=== PATIENT | female | born 1950 | race Caucasian/White ===

== ENCOUNTER → 2017-10-16 | Outpatient (CLI) | payer MEDICARE, OTHER ==
[~2017-10-16] MED LIST: BUSP15TA69 PO; CAPS60CR TP; CEFU250T11 PO; CITA-128 PO; CYC10 PO; CYCL10TA29 PO; DAR100 PO; DICY10CA62 PO; HYDR-2966 PO; HYDR-3083 PO; HYDR-3250 FT; HYDR-4309 PO; HYO375 PO; HYOS0.3732 PO; KET10 PO; LOR5/325 PO; MELA5TAB20 PO; METH-271 PO; ONDA4TAB PO; OSE75 PO; PER PO; PRAV20TA65 PO; PRE20 PO; PRED20TA6 PO; TRAZ-156 PO; VAL500 PO
== END ==
LOC: RESP 12:47
PROVIDERS: ATTEND Physician Assistant
DX: J44.9 Chronic obstructive pulmonary disease, unspecified (principal); J98.4 Other disorders of lung
CPT/HCPCS: 94060; 94729

== ENCOUNTER 2017-12-12 18:41 | Emergency (ER) | payer MEDICARE, OTHER ==
[~2017-12-12] VITALS: Ht 167.6 cm; Wt 86.2 kg
--- NOTE | 2017-12-12 18:44 | ER Report ---
History and Physical Time Seen By MD: 18:44 HPI/ROS CHIEF COMPLAINT: Left shoulder pain HISTORY OF PRESENT ILLNESS: 67-year-old female with a history of osteoarthritis and numerous joints complains of left shoulder pain for 2 weeks. She recalls no specific injury. She notes no exacerbating movements. Patient describes 6/ 10 pain is keeping her from sleeping. Patient notes no fever or chills. He notes no joint swelling. Allergies: Coded Allergies: amoxicillin (Verified Allergy, Mild, ITCHES, 12/12/17) codeine (Verified Allergy, Mild, HALLUCINATE, 12/12/17) Uncoded Allergies: tape (Allergy, Intermediate, rash, 04/12/09) Home Meds Active Scripts Oxycodone Hcl/Acetaminophen (PERCOCET 5-325 MG TABLET) 1 Each Tablet, 1 EACH PO Q4-6H Y for PAIN, #12 Prov:ANNAGLORY Guzmán DO 12/12/17 Prednisone 10 Mg Tab (PREDNISONE 10 MG TAB) 10 Mg Tablet, 10 MG PO QDAY Y for reduce arthritis inflammation, #9 2 tabs daily for 3 days 1 tab daily for 3 days Prov:MARTÍNEZ CASTILLOKatelyn Guzmán DO 12/12/17 Reported Medications Diclofenac Sodium (DICLOFENAC SODIUM) 75 Mg Tablet.dr, 75 MG PO TID Y for ANXIETY, TAB 12/12/17 Dicyclomine Hcl (DICYCLOMINE HCL) 20 Mg Tablet, 20 MG PO QID 12/12/17 Cyclobenzaprine Hcl (CYCLOBENZAPRINE HCL) 10 Mg Tablet, 10 MG PO TID Y for PAIN , #9 TAB 12/12/17 Melatonin/Pyridoxine Hcl (B6) (MELATONIN 10 MG TABLET) 1 Each Tab.mphase, 1 EACH PO QHS 12/12/17 Buspirone Hcl (BUSPIRONE HCL) 15 Mg Tablet, 15 MG PO TID, #10 TAB 07/21/17 Trazodone Hcl (TRAZODONE HCL) 50 Mg Tablet, 100 MG PO QHS 11/05/15 Pravastatin Sodium (Pravachol) 20 Mg Tablet, 40 MG PO QPM, 0 Refills 09/09/09 Citalopram Hydrobromide (Citalopram Hbr) 20 Mg Tablet, 40 MG PO QDAY 04/12/09 Hydrochlorothiazide (Hydrochlorothiazide) 25 Mg Tablet, 12.5 MG PO DAILY 04/12/09 Discontinued Reported Medications Melatonin (MELATONIN) 5 Mg Tab.rapdis, 5 MG PO QHS 01/06/17 Discontinued Scripts Prednisone (PREDNISONE) 20 Mg Tablet, 20 MG PO QDAY for reduce lung inflammation for 7 Days, #9 2 By mouth daily 3 days, then 1 by mouth daily 3 days Prov:GLORY CASTILLO DO 07/21/17 Cefuroxime Axetil (CEFUROXIME) 250 Mg Tablet, 250 MG PO BID for infection, #14 TAB Prov:GLORY CASTILLO DO 07/21/17 Reviewed Nurses Notes: Yes Old Medical Records Reviewed: Yes Hx Smoking: Yes (less than 1ppd/quitting) Smoking Status: Current: Every Day Smoker Exposure to Second Hand Smoke?: Yes Hx Substance Use Disorder: No Hx Alcohol Use: No Constitutional Vital Sign - Last 24 Hours 12/12/17 18:49 Temp 98.2 Pulse 97 Resp 20 B/P (MAP) 159/82 Pulse Ox 92 O2 Delivery Room Air Physical Exam General appearance: Alert no distress. Afebrile Respiratory: Chest is non tender, lungs are clear to auscultation. Cardiac: Regular rate and rhythm Extremities: Examination of the left shoulder reveals no joint effusion, no erythema, no warmth. There is pain with passive range of motion and active range of motion of the joint. There is decreased range of motion. Elbow, wrist and hand are unremarkable. The left hand is neurovascularly intact. DIFFERENTIAL DIAGNOSIS: After history and physical exam differential diagnosis was considered for sprain, strain, fracture, dislocation, contusion, rotator cuff tear, arthritis Medical Decision Making EKG/Imaging Imaging X-ray: Two-view left shoulder was obtained. I viewed the images myself on the PACS system. My interpretation of the images is: No fracture no dislocation or malalignment. The radiologist interpretation had no clinically significant variation from this interpretation. ED Course/Re-evaluation ED Course Patient was admitted to an examination room. H&P was done. The differential diagnoses was considered. On clinical examination there is no joint effusion or pain in her shoulder with movement. There's been no injury. Patient has diagnostic x-rays which were unremarkable. Patient be treated with prednisone since she is unable to take NSAIDs due to her other medications. Patient be given a limited supply of Percocet for 10 for pain relief. She is advised apply heating pad to her shoulder. Patient advised to follow-up with primary care if unimproved in 3-5 days. Decision to Disposition Date: Dec 12, 2017 Decision to Disposition Time: 19:18 Depart Departure Latest Vital Signs Vital Signs Date Time Temp Pulse Resp B/P (MAP) Pulse Ox O2 Delivery O2 Flow Rate FiO2 12/12/17 18:49 98.2 97 20 159/82 92 Room Air Impression: Primary Impression: Osteoarthritis of left shoulder Additional Impression: Shoulder pain Condition: Improved Disposition: HOME OR SELF-CARE Referrals: ROMY HESS PA-C (PCP) New Scripts Oxycodone Hcl/Acetaminophen (PERCOCET 5-325 MG TABLET) 1 Each Tablet 1 EACH PO Q4-6H Y for PAIN, #12 Prov: GLORY CASTILLO DO 12/12/17 Prednisone 10 Mg Tab (PREDNISONE 10 MG TAB) 10 Mg Tablet 10 MG PO QDAY Y for reduce arthritis inflammation, #9 2 tabs daily for 3 days 1 tab daily for 3 days Prov: GLORY CASTILLO DO 12/12/17 Patient Instructions: Arthritis (ED) Additional Instructions: Apply heating pad 30-60 minutes 2-3 times per day to your left shoulder Follow-up with your primary care if unimproved in 3-5 days Problem Qualifiers Primary Impression: Osteoarthritis of left shoulder Osteoarthritis type: primary Qualified Codes: M19.012 - Primary osteoarthritis, left shoulder Additional Impression: Shoulder pain Chronicity: acute Laterality: left Qualified Codes: M25.512 - Pain in left shoulder GLORY CASTILLO DO Dec 12, 2017 18:44
[2017-12-12 18:49] VITALS: BP 159/82
[2017-12-12] MEDS ORDERED: predniSONE 20 MG TAB PO ONE (18:55)
[2017-12-12] MEDS ORDERED: CYCL10TA29 PO (18:57)
[2017-12-12] MEDS ORDERED: DICY20TA70 PO (18:57)
[2017-12-12] MEDS ORDERED: MELA1TAB2 PO (18:57)
[2017-12-12] MEDS ORDERED: DICL-195 PO (18:58)
[2017-12-12] MEDS ORDERED: OXYC-865 PO (19:20)
[2017-12-12] MEDS ORDERED: PRED-1 PO (19:20)
--- NOTE | 2017-12-12 19:27 | RADIOLOGY IMAGING REPORT ---
FACILITY: [facility] PATIENT NAME: Darvin Jimenez : 1950 MR: [id number] V: [id number] EXAM DATE: ORDERING PHYSICIAN: GLORY CASTILLO TECHNOLOGIST: Location: [facility] - [place] Patient: Darvin Jimenez : 1950 Visit/Account:[id number] Date of Sevice: 12/12/2017 EXAMINATION: Left shoulder radiographs 2 views HISTORY: Shoulder pain for 2 weeks. COMPARISON: None. FINDINGS: 2 views of the left shoulder are obtained. Bones: Negative. Joint spaces: Negative. Hardware: None. Alignment: Normal. Soft tissues/visualized lungs: Negative. IMPRESSION: No acute osseous abnormality of the left shoulder. Report Dictated By: Zeke Kumari MD at 12/12/2017 7:21 PM Report E-Signed By: Zeke Kumari MD at 12/12/2017 7:22 PM WSN:[id number]
== END 2017-12-12 19:25 | disposition home or self-care (01) ==
LOC: ER 18:53
DX: M19.012 Primary osteoarthritis, left shoulder (principal)
CPT/HCPCS: 73030; 99283; A9270; J7512

== ENCOUNTER 2018-01-31 22:21 | Emergency (ER) | payer MEDICARE, OTHER ==
[~2018-01-31 22:21] MED LIST changes: +DICL-195 PO; +DICY20TA70 PO; +MELA1TAB2 PO; +OXYC-865 PO; +PRED-1 PO
--- NOTE | 2018-01-31 22:35 | ER Report ---
History and Physical Time Seen By MD: 22:34 Hx. of Stated Complaint: PT REPORTS THAT HER UPPER ARMS HAVE BEEN SWOLLEN FOR THREE DAYS. STATES THAT THEY ARE PAINFUL AND SHE CAN'T SLEEP ON HER BACK. HPI/ROS CHIEF COMPLAINT: arms swollen and painful HISTORY OF PRESENT ILLNESS: This is a 67 year old female. She has had pain for the last couple of months, not worse than usual. She noted that they were a little more swollen and some bruising the last 3 days. No chest pain or shortness of breath with this. She has no cough, runny nose or sore throat. No abdominal pain. No nausea or vomiting. No changes in bowel or bladder. Eating normally, does not drink much fluid. Maybe about 12-16 ounces of diet coke daily. Allergies: Coded Allergies: amoxicillin (Verified Allergy, Mild, ITCHES, 01/31/18) codeine (Verified Allergy, Mild, HALLUCINATE, 01/31/18) Uncoded Allergies: tape (Allergy, Intermediate, rash, 04/12/09) Home Meds Reported Medications Diclofenac Sodium (DICLOFENAC SODIUM) 75 Mg Tablet.dr, 75 MG PO TID Y for ANXIETY, TAB 12/12/17 Dicyclomine Hcl (DICYCLOMINE HCL) 20 Mg Tablet, 20 MG PO QID 12/12/17 Cyclobenzaprine Hcl (CYCLOBENZAPRINE HCL) 10 Mg Tablet, 10 MG PO TID Y for PAIN , #9 TAB 12/12/17 Melatonin/Pyridoxine Hcl (B6) (MELATONIN 10 MG TABLET) 1 Each Tab.mphase, 1 EACH PO QHS 12/12/17 Buspirone Hcl (BUSPIRONE HCL) 15 Mg Tablet, 15 MG PO TID, #10 TAB 07/21/17 Trazodone Hcl (TRAZODONE HCL) 50 Mg Tablet, 100 MG PO QHS 11/05/15 Pravastatin Sodium (Pravachol) 20 Mg Tablet, 40 MG PO QPM, 0 Refills 09/09/09 Citalopram Hydrobromide (Citalopram Hbr) 20 Mg Tablet, 40 MG PO QDAY 04/12/09 Hydrochlorothiazide (Hydrochlorothiazide) 25 Mg Tablet, 12.5 MG PO DAILY 04/12/09 Discontinued Scripts Oxycodone Hcl/Acetaminophen (PERCOCET 5-325 MG TABLET) 1 Each Tablet, 1 EACH PO Q4-6H Y for PAIN, #12 Prov:GLORY CASTILLO DO 12/12/17 Prednisone 10 Mg Tab (PREDNISONE 10 MG TAB) 10 Mg Tablet, 10 MG PO QDAY Y for reduce arthritis inflammation, #9 2 tabs daily for 3 days 1 tab daily for 3 days Prov:GLORY CASTILLO DO 12/12/17 Reviewed Nurses Notes: Yes Hx Smoking: Yes (less than 1ppd/quitting) Smoking Status: Current: Every Day Smoker Exposure to Second Hand Smoke?: Yes Hx Substance Use Disorder: No Hx Alcohol Use: No Constitutional Vital Sign - Last 24 Hours 01/31/18 02/01/18 22:29 01:22 Temp 97.8 Pulse 109 85 Resp 14 16 B/P (MAP) 176/106 138/88 (105) Pulse Ox 92 95 O2 Delivery Room Air Room Air Physical Exam General Appearance: The patient is alert. No acute distress. Eyes: Pupils are equal, round. No pallor, injection or icterus. ENT: Mucous membranes are moist. Normal oral mucosa. Posterior oropharynx is normal. Neck: Supple and non tender. No lymphadenopathy. Respiratory: Lungs are clear to auscultation. Cardiovascular: Regular rate and rhythm. No murmurs, gallops or rubs. Normal capillary refill. No edema. Gastrointestinal: Abdomen is soft and non tender. Nondistended. Normal active bowel sounds. Neurological: Alert and oriented x3. No focal neurologic deficits in the extremities. Skin: Warm and dry. No rashes. a few small areas of bruising on the upper arms. Very mild swelling, difficult to appreciate, both upper arms. Musculoskeletal: Extremities show tenderness in arms, but no other musculoskeletal pain at this time. DIFFERENTIAL DIAGNOSIS: After history and physical exam, differential diagnosis was considered for muscle pain in the arms with some mild bruising and swelling. Medical Decision Making Data Points Result Diagram: 01/31/18 23001/31/18 230 Laboratory Hematology Test 01/31/18 23:05 Red Blood Count 5.15 M/uL (4.17-5.56) Mean Corpuscular Volume 86.1 fL (80.0-96.0) Mean Corpuscular Hemoglobin 30.1 pg (26.0-33.0) Mean Corpuscular Hemoglobin Concent 35.0 g/dL (32.0-36.0) Red Cell Distribution Width 13.2 % (11.5-14.5) Mean Platelet Volume 9.5 fL (7.2-11.1) Neutrophils (%) (Auto) 46.9 % (39.4-72.5) Lymphocytes (%) (Auto) 43.7 % (17.6-49.6) Monocytes (%) (Auto) 6.3 % (4.1-12.4) Eosinophils (%) (Auto) 1.8 % (0.4-6.7) Basophils (%) (Auto) 1.3 % (0.3-1.4) Nucleated RBC Relative Count (auto) 0.1 /100WBC Neutrophils # (Auto) 4.0 K/uL (2.0-7.4) Lymphocytes # (Auto) 3.7 K/uL (1.3-3.6) Monocytes # (Auto) 0.5 K/uL (0.3-1.0) Eosinophils # (Auto) 0.2 K/uL (0.0-0.5) Basophils # (Auto) 0.1 K/uL (0.0-0.1) Nucleated RBC Absolute Count (auto) 0.01 K/uL Prothrombin Time 13.0 seconds (12.0-14.4) Prothromb Time International Ratio 0.99 Activated Partial Thromboplast Time 29 seconds (23-35) Sodium Level 142 mmol/L (137-145) Potassium Level 3.3 mmol/L (3.5-5.0) Chloride Level 102 mmol/L (98-107) Carbon Dioxide Level 25 mmol/L (22-31) Blood Urea Nitrogen 15 mg/dl (7-18) Creatinine 1.30 mg/dl (0.52-1.04) Glomerular Filtration Rate Calc 40.7 Random Glucose 121 mg/dl (75-110) Calcium Level 9.5 mg/dl (8.4-10.2) Total Bilirubin 0.3 mg/dl (0.2-1.3) Aspartate Amino Transf (AST/SGOT) 42 U/L (0-35) Alanine Aminotransferase (ALT/SGPT) 49 U/L (0-56) Alkaline Phosphatase 73 U/L (0-126) Total Creatine Kinase 51 U/L (30-135) Total Protein 7.1 gm/dl (6.3-8.2) Albumin 4.0 g/dl (3.5-5.0) Chemistry Test 01/31/18 23:05 White Blood Count 8.6 k/uL (4.5-11.0) Red Blood Count 5.15 M/uL (4.17-5.56) Hemoglobin 15.5 g/dL (12.0-16.0) Hematocrit 44.3 % (34.0-47.0) Mean Corpuscular Volume 86.1 fL (80.0-96.0) Mean Corpuscular Hemoglobin 30.1 pg (26.0-33.0) Mean Corpuscular Hemoglobin Concent 35.0 g/dL (32.0-36.0) Red Cell Distribution Width 13.2 % (11.5-14.5) Platelet Count 126 K/uL (150-450) Mean Platelet Volume 9.5 fL (7.2-11.1) Neutrophils (%) (Auto) 46.9 % (39.4-72.5) Lymphocytes (%) (Auto) 43.7 % (17.6-49.6) Monocytes (%) (Auto) 6.3 % (4.1-12.4) Eosinophils (%) (Auto) 1.8 % (0.4-6.7) Basophils (%) (Auto) 1.3 % (0.3-1.4) Nucleated RBC Relative Count (auto) 0.1 /100WBC Neutrophils # (Auto) 4.0 K/uL (2.0-7.4) Lymphocytes # (Auto) 3.7 K/uL (1.3-3.6) Monocytes # (Auto) 0.5 K/uL (0.3-1.0) Eosinophils # (Auto) 0.2 K/uL (0.0-0.5) Basophils # (Auto) 0.1 K/uL (0.0-0.1) Nucleated RBC Absolute Count (auto) 0.01 K/uL Prothrombin Time 13.0 seconds (12.0-14.4) Prothromb Time International Ratio 0.99 Activated Partial Thromboplast Time 29 seconds (23-35) Glomerular Filtration Rate Calc 40.7 Calcium Level 9.5 mg/dl (8.4-10.2) Total Bilirubin 0.3 mg/dl (0.2-1.3) Aspartate Amino Transf (AST/SGOT) 42 U/L (0-35) Alanine Aminotransferase (ALT/SGPT) 49 U/L (0-56) Alkaline Phosphatase 73 U/L (0-126) Total Creatine Kinase 51 U/L (30-135) Total Protein 7.1 gm/dl (6.3-8.2) Albumin 4.0 g/dl (3.5-5.0) Coagulation Test 01/31/18 23:05 Prothrombin Time 13.0 seconds Prothromb Time International Ratio 0.99 Activated Partial Thromboplast Time 29 seconds EKG/Imaging Imaging Exam type: CHEST PA AND LAT History: arm swelling and pain Comparison: 07/21/2017. Findings: Lungs are hyperexpanded but otherwise clear. There is no focal consolidation, pleural effusion or pneumothorax. Heart size is normal. The osseous structures are unremarkable. IMPRESSION: 1. No acute cardiopulmonary disease. Report Dictated By: Jefferson Pulliam MD at 01/31/2018 11:57 PM VENOUS DOPP UPPER BILAT EXTREM HISTORY: Arm pain COMPARISON: None. FINDINGS: Grayscale compression, duplex and color Doppler interrogation of both upper extremity veins was performed. Left upper extremity: Jugular vein - Negative. Subclavian vein - Negative. Axillary vein - Negative. Basilic vein - Negative. Cephalic vein - Negative. Brachial veins - Negative. Right upper extremity: Jugular vein - Negative. Subclavian vein - Negative. Axillary vein - Negative. Basilic vein - Negative. Cephalic vein - Negative. Brachial veins - Negative. IMPRESSION: 1. No evidence for DVT in either upper extremity. Report Dictated By: Jefferson Pulliam MD at 02/01/2018 1:07 AM ED Course/Re-evaluation Clinical Indication for ER IV: IV Access ED Course Labs showed the patient to be a little dehydrated pre-renal. Mild hypokalemia. Otherwise negative. Imaging negative as well. I would like her to hydrate better over the next couple of days and follow-up with PCP for further evaluation of the muscle/arm pain and mild swelling. No acute problem identified tonight's evaluation. Decision to Disposition Date: Feb 01, 2018 Decision to Disposition Time: 01:15 Depart Departure Latest Vital Signs Vital Signs Date Time Temp Pulse Resp B/P (MAP) Pulse Ox O2 Delivery O2 Flow Rate FiO2 02/01/18 01:22 85 16 138/88 (105) 95 Room Air 01/31/18 22:29 97.8 Impression: Primary Impression: Dehydration Condition: Improved Disposition: HOME OR SELF-CARE Referrals: ROMY HESS PA-C (PCP) Patient Instructions: Dehydration (ED) Additional Instructions: You were dehydrated tonight. Your potassium was slightly low. You need to drink more fluids. Treat the fluid intake like you would a medication; drink a glass of water three times a day to start. You can eat some foods that are higher in potassium for the next few days Call your primary care providers office on Friday to schedule a repeat appointment for this week. We do not know what was causing the swelling and pain in you arms; further testing may be needed with your primary care doctor. JOSUE ALBRECHT MD Jan 31, 2018 22:34
[2018-01-31 23:13] LABS: PLATELET COUNT, AUTOMATED 126 K/uL (150-450)
[2018-01-31 23:23] LABS: INR 0.99
--- NOTE | 2018-02-01 00:02 | RADIOLOGY IMAGING REPORT ---
FACILITY: [facility] - [place] PATIENT NAME: Darvin Jimenez : 1950 MR: [id number] V: [id number] EXAM DATE: ORDERING PHYSICIAN: JOSUE ALBRECHT TECHNOLOGIST: Location: [facility] Patient: Darvin Jimenez : 1950 Visit/Account:[id number] Date of Sevice: 01/31/2018 Exam type: CHEST PA AND LAT History: arm swelling and pain Comparison: 07/21/2017. Findings: Lungs are hyperexpanded but otherwise clear. There is no focal consolidation, pleural effusion or pne umothorax. Heart size is normal. The osseous structures are unremarkable. IMPRESSION: 1. No acute cardiopulmonary disease. Report Dictated By: Jefferson Pulliam MD at 01/31/2018 11:57 PM Report E-Signed By: Jefferson Pulliam MD at 01/31/2018 11:58 PM WSN:[id number]
[2018-02-01] MEDS ORDERED: NS(*) 0.9% 1000 ML BAG 1,000 ML IV ONE (00:50)
--- NOTE | 2018-02-01 01:14 | RADIOLOGY IMAGING REPORT ---
FACILITY: [facility] - [place] PATIENT NAME: Darvin Jimenez : 1950 MR: [id number] V: [id number] EXAM DATE: ORDERING PHYSICIAN: JOSUE ALBRECHT TECHNOLOGIST: Location: [facility] Patient: Darvin Jimenez : 1950 Visit/Account:[id number] Date of Sevice: 01/31/2018 VENOUS DOPP UPPER BILAT EXTREM HISTORY: Arm pain COMPARISON: None. FINDINGS: Grayscale compression, duplex and color Doppler interrogation of both upper extremity veins was perfo rmed. Left upper extremity: Jugular vein - Negative. Subclavian vein - Negative. Axillary vein - Negative. Basilic vein - Negative. Cephalic vein - Negative. Brachial veins - Negative. Right upper extremity: Jugular vein - Negative. Subclavian vein - Negative. Axillary vein - Negative. Basilic vein - Negative. Cephalic vein - Negative. Brachial veins - Negative. IMPRESSION: 1. No evidence for DVT in either upper extremity. Report Dictated By: Jefferson Pulliam MD at 02/01/2018 1:07 AM Report E-Signed By: Jefferson Pulliam MD at 02/01/2018 1:10 AM WSN:[id number]
[2018-02-01 01:22] VITALS: BP 138/88
== END 2018-02-01 01:28 | disposition home or self-care (01) ==
LOC: ER 22:36
DX: E86.0 Dehydration (principal)
CPT/HCPCS: 36415; 71046; 82040; 82247; 82310; 82374; 82435; 82550; 82565; 82947; 84075; 84132; 84155; 84295; 84450; 84460; 84520; 85025; 85610; 85730; 93970; 99284

== ENCOUNTER → 2018-03-13 | Outpatient (CLI) | payer MEDICARE, OTHER ==
--- NOTE | 2018-03-13 09:08 | RADIOLOGY IMAGING REPORT ---
FACILITY: [facility] - [place] PATIENT NAME: Darvin Jimenez : 1950 MR: [id number] V: [id number] EXAM DATE: ORDERING PHYSICIAN: ROMY HESS TECHNOLOGIST: Location: [facility] - [place] Patient: Darvin Jimenez : 1950 Visit/Account:[id number] Date of Sevice: 03/13/2018 LIVER HISTORY: Elevated LFTs COMPARISON: None. FINDINGS: Gallbladder: Gallbladder appears partially contracted although there is no demonstration of gallbladd er stones sludge or wall thickening. Liver: Mild increased echogenicity throughout the liver relative to the right kidney which can be see n with fatty infiltration or other infiltrative process Common duct: Normal, 5.4 mm diameter. Pancreas: Partially obscured by bowel gas. Of the visualized portion no gross abnormality is seen Right kidney: Right kidney appears grossly unremarkable with no evidence of hydronephrosis and measur es 10.1 cm in length Upper abdominal aorta and IVC: The aorta is obscured by bowel gas. IVC is patent Ascites: None visualized. IMPRESSION: Increased echogenicity throughout liver which can be seen with fatty infiltration or other infiltrati ve process Gallbladder appears partially contracted although no other abnormality identified Report Dictated By: Veronica Rock MD at 03/13/2018 9:01 AM Report E-Signed By: Veronica Rock MD at 03/13/2018 9:04 AM WSN:[id number]
== END ==
LOC: US 00:07
PROVIDERS: ATTEND Physician Assistant
DX: K76.0 Fatty (change of) liver, not elsewhere classified (principal)
CPT/HCPCS: 76705

== ENCOUNTER 2018-07-16 18:53 | Emergency (ER) | payer MEDICARE, OTHER ==
[~2018-07-16 18:53] MED LIST changes: -TRAZ-156 PO; +TRAZ50TA34 PO
--- NOTE | 2018-07-16 19:08 | ER Report ---
History and Physical Time Seen By MD: 19:08 Hx. of Stated Complaint: LOW BACK PAIN, WORSE WITH MOVEMENT HPI/ROS CHIEF COMPLAINT: back pain HISTORY OF PRESENT ILLNESS: This is a 67 year old female. She has a history of low back pain and has had low back surgery in the past with Dr. Reyes. She has had pain across the low back since last night. She does not remember any distinct injury, but may have twisted wrong last night. Normally has pain on the left side, today with pain across the low back even to the right. Pain making it difficult to move or stand. Has been taking cyclobenzaprine nursing home, but no improvement with the new symptoms. She has no bowel or bladder incontinency. General bilateral weakness, but no focal weakness. Allergies: Coded Allergies: amoxicillin (Verified Allergy, Mild, ITCHES, 01/31/18) codeine (Verified Allergy, Mild, HALLUCINATE, 01/31/18) Uncoded Allergies: tape (Allergy, Intermediate, rash, 04/12/09) Home Meds Active Scripts Hydrocodone Bit/Acetaminophen (HYDROCODON-ACETAMINOPHEN 5-325) 1 Each Tablet, 1 EACH PO Q4H PRN for PAIN, #12 TAB 0 Refills Prov:JOSUE ALBRECHT MD 07/16/18 Tizanidine Hcl (TIZANIDINE HCL) 4 Mg Tablet, 4 MG PO TID PRN for MUSCLE SPASMS, #20 TAB 0 Refills Prov:JOSUE ALBRECHT MD 07/16/18 Reported Medications Diclofenac Sodium (DICLOFENAC SODIUM) 75 Mg Tablet.dr, 75 MG PO TID PRN for ANXIETY, TAB 12/12/17 Dicyclomine Hcl (DICYCLOMINE HCL) 20 Mg Tablet, 20 MG PO QID 12/12/17 Cyclobenzaprine Hcl (CYCLOBENZAPRINE HCL) 10 Mg Tablet, 10 MG PO TID PRN for PAIN, #9 TAB 12/12/17 Melatonin/Pyridoxine Hcl (B6) (MELATONIN 10 MG TABLET) 1 Each Tab.mphase, 1 EACH PO QHS 12/12/17 Buspirone Hcl (BUSPIRONE HCL) 15 Mg Tablet, 15 MG PO TID, #10 TAB 07/21/17 Trazodone Hcl (TRAZODONE HCL) 50 Mg Tablet, 100 MG PO QHS 11/05/15 Pravastatin Sodium (Pravachol) 20 Mg Tablet, 40 MG PO QPM, 0 Refills 09/09/09 Citalopram Hydrobromide (Citalopram Hbr) 20 Mg Tablet, 40 MG PO QDAY 04/12/09 Hydrochlorothiazide (Hydrochlorothiazide) 25 Mg Tablet, 12.5 MG PO DAILY 04/12/09 Reviewed Nurses Notes: Yes Hx Smoking: Yes (less than 1ppd/quitting) Smoking Status: Current: Every Day Smoker Exposure to Second Hand Smoke?: Yes Hx Substance Use Disorder: No Hx Alcohol Use: No Constitutional Vital Sign - Last 24 Hours 07/16/18 07/16/18 07/16/18 07/16/18 19:01 19:03 19:08 19:23 Temp 98.2 Pulse 110 101 102 Resp 20 B/P (MAP) 157/74 (101) 157/74 Pulse Ox 91 91 91 O2 Delivery Room Air 07/16/18 07/16/18 07/16/18 07/16/18 19:38 19:53 20:08 20:23 Pulse ??? 98 98 100 Pulse Ox 91 90 89 07/16/18 07/16/18 07/16/18 07/16/18 20:38 20:43 20:54 20:58 Pulse ??? 104 ??? B/P (MAP) 115/71 (86) Pulse Ox 90 92 07/16/18 07/16/18 07/16/18 07/16/18 21:13 21:28 21:43 21:58 Pulse 92 90 ? Pulse Ox 89 89 Physical Exam General Appearance: The patient is alert, has no immediate need for airway protection and no current signs of toxicity. Eyes: Pupils equal and round no injection. ENT: Normal oral mucosa. Moist mucous membranes. Tympanic membranes are normal. Neck: Neck is supple and non tender. Respiratory: Breathing easily, clear Cardiac: regular rate and rhythm Gastrointestinal: Abdomen is soft and non tender, no masses, bowel sounds normal. Musculoskeletal: Extremities have full range of motion and no tenderness. Has tenderness diffuse in low back, somewhat worse on right side in lateral lumbar muscle area. Negative strait leg raise. Neuro: normal sensation in legs. Diminished reflexes, but equal. No weakness. Skin: No rashes or lesions. DIFFERENTIAL DIAGNOSIS: After history and physical exam differential diagnosis was considered for low back pain, likely strain. Medical Decision Making EKG/Imaging Imaging Examination: LUMBAR SPINE 2 OR 3 VIEW Comparison: CT 07/01/2014. History: Low back pain. No known trauma. Findings: 5 lumbar type vertebral bodies. L4-L5 moderate degenerative disc disease with advanced facet arthropathy at L4-L5 and L5-S1. Minimal degenerative anterolisthesis at L4-L5. No vertebral body height loss or malalignment is otherwise identified. Sacroiliac joint alignment is within normal limits. Aortic atherosclerosis. IMPRESSION: 1. No lumbar spine acute vertebral body height loss or malalignment. 2. Lower lumbar spine degenerative disc disease and facet arthropathy. Report Dictated By: Chidi Chowdhury MD at 07/16/2018 9:07 PM ED Course/Re-evaluation ED Course Treated with Tizanidine 4mg and Lortab 10/325. Improved pain. Imaging shows degenerative changes. Recommended Aleve, Lortab and Tizanidine with follow-up with primary care and also consider orthopedic surgery evaluation. Decision to Disposition Date: Jul 16, 2018 Decision to Disposition Time: 21:54 Depart Departure Latest Vital Signs Vital Signs Date Time Temp Pulse Resp B/P (MAP) Pulse Ox O2 Delivery O2 Flow Rate FiO2 07/16/18 21:58 ??? 07/16/18 21:28 89 07/16/18 20:54 115/71 (86) 07/16/18 19:03 98.2 20 Room Air Impression: Primary Impression: Low back strain Condition: Improved Disposition: HOME OR SELF-CARE Referrals: ROMY HESS PA-C (PCP) New Scripts Hydrocodone Bit/Acetaminophen (HYDROCODON-ACETAMINOPHEN 5-325) 1 Each Tablet 1 EACH PO Q4H PRN for PAIN, #12 TAB 0 Refills Prov: JOSUE ALBRECHT MD 07/16/18 Tizanidine Hcl (TIZANIDINE HCL) 4 Mg Tablet 4 MG PO TID PRN for MUSCLE SPASMS, #20 TAB 0 Refills Prov: JOSUE ALBRECHT MD 07/16/18 Patient Instructions: Low Back Strain (ED) Additional Instructions: Take Lortab 5/325, one every 4 hours as needed for severe pain. Take Tizanidine 4mg, one every 8 hours as needed for pain and spasm. Take Aleve twice a day for pain. Follow-up with your primary care provider. Problem Qualifiers Primary Impression: Low back strain Encounter type: initial encounter Qualified Codes: S39.012A - Strain of muscle, fascia and tendon of lower back, initial encounter JOSUE ALBRECHT MD Jul 16, 2018 19:08
[2018-07-16] MEDS ORDERED: APAP/HYDROCODONE 325/10 TAB PO ONE (19:20)
[2018-07-16 20:54] VITALS: BP 115/71
--- NOTE | 2018-07-16 21:14 | RADIOLOGY IMAGING REPORT ---
[place] [facility] [place]: Darvin Jimenez : 1950 MR: [id number] V: [id number] EXAM DATE: ORDERING PHYSICIAN: JOSUE ALBRECHT TECHNOLOGIST: Location: [facility] - [place] Patient: Darvin Jimenez : 1950 Visit/Account:[id number] Date of Sevice: 07/16/2018 Examination: LUMBAR SPINE 2 OR 3 VIEW Comparison: CT 07/01/2014. History: Low back pain. No known trauma. Findings: 5 lumbar type vertebral bodies. L4-L5 moderate degenerative disc disease with advanced face t arthropathy at L4-L5 and L5-S1. Minimal degenerative anterolisthesis at L4-L5. No vertebral body he ight loss or malalignment is otherwise identified. Sacroiliac joint alignment is within normal limits . Aortic atherosclerosis. IMPRESSION: 1. No lumbar spine acute vertebral body height loss or malalignment. 2. Lower lumbar spine degenerative disc disease and facet arthropathy. Report Dictated By: Chidi Chowdhury MD at 07/16/2018 9:07 PM Report E-Signed By: Chidi Chowdhury MD at 07/16/2018 9:10 PM WSN:[id number]
[2018-07-16] MEDS ORDERED: LOR5/325 PO (21:55)
[2018-07-16] MEDS ORDERED: TIZA-128 PO (21:55)
== END 2018-07-16 22:10 | disposition home or self-care (01) ==
LOC: ER 19:57
DX: S39.012A Strain of muscle, fascia and tendon of lower back, initial encounter (principal)
CPT/HCPCS: 72100; 99283; A9270

== ENCOUNTER 2018-09-25 23:49 | Emergency (ER) | payer MEDICARE, OTHER ==
[~2018-09-25 23:49] MED LIST changes: -HYDR-4309 PO; +HYDR-653 PO; +TIZA-128 PO
--- NOTE | 2018-09-26 00:04 | ER Report ---
History and Physical Time Seen By MD: 00:04 HPI/ROS CHIEF COMPLAINT: took too much sleep medicine HISTORY OF PRESENT ILLNESS: This is a 68 year old female. She took two of her sleep medicines. Initially said it was her trazodone, but then remembered it was her Melatonin. 2 of the 10mg tablets. No adverse feelings right now. She did have an episode of her whole left side being week about 1 week ago, but did not come to the hospital at that time and this is now gone. No cough or shortness of breath. No chest pain. She is a little sleepy. No nausea or vomiting. Allergies: Coded Allergies: amoxicillin (Verified Allergy, Mild, ITCHES, 01/31/18) codeine (Verified Allergy, Mild, HALLUCINATE, 01/31/18) Uncoded Allergies: tape (Allergy, Intermediate, rash, 04/12/09) Home Meds Active Scripts Hydrocodone Bit/Acetaminophen (HYDROCODON-ACETAMINOPHEN 5-325) 1 Each Tablet, 1 EACH PO Q4H PRN for PAIN, #12 TAB 0 Refills Prov:JOSUE ALBRECHT MD 07/16/18 Tizanidine Hcl (TIZANIDINE HCL) 4 Mg Tablet, 4 MG PO TID PRN for MUSCLE SPASMS, #20 TAB 0 Refills Prov:JOSUE ALBRECHT MD 07/16/18 Reported Medications Trazodone Hcl (TRAZODONE HCL) 150 Mg Tablet, 150 MG PO QHS 09/26/18 Diclofenac Sodium (DICLOFENAC SODIUM) 75 Mg Tablet.dr, 75 MG PO TID PRN for ANXIETY, TAB 12/12/17 Dicyclomine Hcl (DICYCLOMINE HCL) 20 Mg Tablet, 20 MG PO QID 12/12/17 Melatonin/Pyridoxine Hcl (B6) (MELATONIN 10 MG TABLET) 1 Each Tab.mphase, 1 EACH PO QHS 12/12/17 Buspirone Hcl (BUSPIRONE HCL) 15 Mg Tablet, 15 MG PO TID, #10 TAB 07/21/17 Pravastatin Sodium (Pravachol) 20 Mg Tablet, 40 MG PO QPM, 0 Refills 09/09/09 Citalopram Hydrobromide (Citalopram Hbr) 20 Mg Tablet, 40 MG PO QDAY 04/12/09 Hydrochlorothiazide (Hydrochlorothiazide) 25 Mg Tablet, 12.5 MG PO DAILY 04/12/09 Discontinued Reported Medications Cyclobenzaprine Hcl (CYCLOBENZAPRINE HCL) 10 Mg Tablet, 10 MG PO TID PRN for PAIN, #9 TAB 12/12/17 Trazodone Hcl (TRAZODONE HCL) 50 Mg Tablet, 100 MG PO QHS 11/05/15 Reviewed Nurses Notes: Yes Hx Smoking: Yes (less than 1ppd/quitting) Smoking Status: Current: Every Day Smoker Exposure to Second Hand Smoke?: Yes Hx Substance Use Disorder: No Hx Alcohol Use: No Constitutional Vital Sign - Last 24 Hours 09/25/18 09/26/18 09/26/18 09/26/18 23:56 00:00 00:00 00:19 Temp 97.3 Pulse 111 102 Resp 18 B/P (MAP) 124/97 96/80 Pulse Ox 82 92 O2 Delivery Room Air Nasal Cannula Nasal Cannula O2 Flow Rate 2.0 09/26/18 09/26/18 09/26/18 09/26/18 00:30 00:34 00:39 00:44 Pulse 106 102 100 Resp 21 18 B/P (MAP) 103/91 Pulse Ox 93 94 94 O2 Delivery Nasal Cannula Nasal Cannula O2 Flow Rate 2 09/26/18 09/26/18 09/26/18 09/26/18 00:54 01:00 01:04 01:14 Pulse ??? 101 97 Resp 17 17 B/P (MAP) 111/74 (86) Pulse Ox 92 94 O2 Delivery Nasal Cannula O2 Flow Rate 2 09/26/18 09/26/18 09/26/18 01:24 01:30 01:45 Pulse 94 91 91 Resp 13 14 16 B/P (MAP) 122/78 (93) Pulse Ox 94 93 94 O2 Delivery Nasal Cannula Nasal Cannula Nasal Cannula O2 Flow Rate 2 2 2 Physical Exam General Appearance: The patient is alert. No acute distress. Non-toxic in ap pearance. Eyes: Pupils are equal, round. Reactive to light. No pallor, injection or icterus. Extraocular movements are intact. ENT: Mucous membranes are moist. Normal oral mucosa. Posterior oropharynx is normal. Normal tympanic membranes and canals. Neck: Supple and non tender. No lymphadenopathy. Respiratory: Lungs are clear to auscultation. Cardiovascular: Regular rate and rhythm. No murmurs, gallops or rubs. Normal capillary refill. No edema. Gastrointestinal: Abdomen is soft and non tender. Nondistended. Normal active bowel sounds. Neurological: Alert and oriented x3. Cranial nerves II through XII show no acute deficits on my exam. No focal neurologic deficits in the extremities. Skin: Warm and dry. No rashes. Musculoskeletal: Extremities are nontender. No tenderness in palpation of the cervical, thoracic and lumbar spine. DIFFERENTIAL DIAGNOSIS: After history and physical exam, differential diagnosis was considered for overuse of medicine. I do not expect any problems, but will touch base with poison control and get labs, EKG and observe. Medical Decision Making Data Points Result Diagram: 09/26/18 0048 09/26/18 0048 Laboratory Hematology Test 09/26/18 00:48 Red Blood Count 5.25 M/uL (4.17-5.56) Mean Corpuscular Volume 87.5 fL (80.0-96.0) Mean Corpuscular Hemoglobin 30.3 pg (26.0-33.0) Mean Corpuscular Hemoglobin Concent 34.6 g/dL (32.0-36.0) Red Cell Distribution Width 13.2 % (11.5-14.5) Mean Platelet Volume 9.6 fL (7.2-11.1) Neutrophils (%) (Auto) 51.3 % (39.4-72.5) Lymphocytes (%) (Auto) 37.9 % (17.6-49.6) Monocytes (%) (Auto) 8.1 % (4.1-12.4) Eosinophils (%) (Auto) 1.6 % (0.4-6.7) Basophils (%) (Auto) 1.1 % (0.3-1.4) Nucleated RBC Relative Count (auto) 0.1 /100WBC Neutrophils # (Auto) 4.3 K/uL (2.0-7.4) Lymphocytes # (Auto) 3.2 K/uL (1.3-3.6) Monocytes # (Auto) 0.7 K/uL (0.3-1.0) Eosinophils # (Auto) 0.1 K/uL (0.0-0.5) Basophils # (Auto) 0.1 K/uL (0.0-0.1) Nucleated RBC Absolute Count (auto) 0.01 K/uL Sodium Level 138 mmol/L (137-145) Potassium Level 3.3 mmol/L (3.5-5.0) Chloride Level 99 mmol/L (98-107) Carbon Dioxide Level 29 mmol/L (22-31) Blood Urea Nitrogen 18 mg/dl (7-18) Creatinine 1.60 mg/dl (0.52-1.04) Glomerular Filtration Rate Calc 32.0 Random Glucose 155 mg/dl (75-110) Calcium Level 9.5 mg/dl (8.4-10.2) Magnesium Level 1.8 mg/dl (1.7-2.2) Total Bilirubin 0.3 mg/dl (0.2-1.3) Aspartate Amino Transf (AST/SGOT) 34 U/L (0-35) Alanine Aminotransferase (ALT/SGPT) 42 U/L (0-56) Alkaline Phosphatase 61 U/L (0-126) Total Protein 7.4 g/dl (6.3-8.2) Albumin 4.2 g/dl (3.5-5.0) Chemistry Test 09/26/18 00:48 White Blood Count 8.4 k/uL (4.5-11.0) Red Blood Count 5.25 M/uL (4.17-5.56) Hemoglobin 15.9 g/dL (12.0-16.0) Hematocrit 45.9 % (34.0-47.0) Mean Corpuscular Volume 87.5 fL (80.0-96.0) Mean Corpuscular Hemoglobin 30.3 pg (26.0-33.0) Mean Corpuscular Hemoglobin Concent 34.6 g/dL (32.0-36.0) Red Cell Distribution Width 13.2 % (11.5-14.5) Platelet Count 146 K/uL (150-450) Mean Platelet Volume 9.6 fL (7.2-11.1) Neutrophils (%) (Auto) 51.3 % (39.4-72.5) Lymphocytes (%) (Auto) 37.9 % (17.6-49.6) Monocytes (%) (Auto) 8.1 % (4.1-12.4) Eosinophils (%) (Auto) 1.6 % (0.4-6.7) Basophils (%) (Auto) 1.1 % (0.3-1.4) Nucleated RBC Relative Count (auto) 0.1 /100WBC Neutrophils # (Auto) 4.3 K/uL (2.0-7.4) Lymphocytes # (Auto) 3.2 K/uL (1.3-3.6) Monocytes # (Auto) 0.7 K/uL (0.3-1.0) Eosinophils # (Auto) 0.1 K/uL (0.0-0.5) Basophils # (Auto) 0.1 K/uL (0.0-0.1) Nucleated RBC Absolute Count (auto) 0.01 K/uL Glomerular Filtration Rate Calc 32.0 Calcium Level 9.5 mg/dl (8.4-10.2) Magnesium Level 1.8 mg/dl (1.7-2.2) Total Bilirubin 0.3 mg/dl (0.2-1.3) Aspartate Amino Transf (AST/SGOT) 34 U/L (0-35) Alanine Aminotransferase (ALT/SGPT) 42 U/L (0-56) Alkaline Phosphatase 61 U/L (0-126) Total Protein 7.4 g/dl (6.3-8.2) Albumin 4.2 g/dl (3.5-5.0) EKG/Imaging EKG Interpretation 12 lead EKG: Rhythm: sinus tachycardia, rate 102 [place]: normal QRS: low voltage ST segments: normal ED Course/Re-evaluation ED Course Missed the hat for urine collection. Labs unremarkable. She is stable and would like to go home. Decision to Disposition Date: Sep 26, 2018 Decision to Disposition Time: 01:49 Depart Departure Latest Vital Signs Vital Signs Date Time Temp Pulse Resp B/P (MAP) Pulse Ox O2 Delivery O2 Flow Rate FiO2 09/26/18 01:45 91 16 94 Nasal Cannula 2 09/26/18 01:30 122/78 (93) 09/25/18 23:56 97.3 Impression: Primary Impression: Overuse of medication Condition: Improved Disposition: HOME OR SELF-CARE Referrals: ROMY HESS PA-C (PCP) Additional Instructions: Would recommend only use 10mg of the Melatonin at bedtime. No other concerns at this time. JOSUE ALBRECHT MD Sep 26, 2018 00:04
[2018-09-26] MEDS ORDERED: TRAZ150T8 PO (00:05)
[2018-09-26 01:12] LABS: PLATELET COUNT, AUTOMATED 146 K/uL (150-450)
[2018-09-26 01:30] VITALS: BP 122/78
--- NOTE | 2018-09-26 03:27 | EKG ---
FACILITY: [facility] PATIENT NAME: ALEJO RAMON : [id number] MR: [id number] V: [id number] EXAM DATE: ORDERING PHYSICIAN: JOSUE ALBRECHT TECHNOLOGIST: Test Reason : OVERUSE OF MEDICATIO Blood Pressure : / mmHG Vent. Rate : 102 BPM Atrial Rate : 102 BPM P-R Int : 150 ms QRS Dur : 074 ms QT Int : 388 ms P-R-T Axes : 078 082 074 degrees QTc Int : 505 ms Sinus rhythm Sinus tachycardia Low voltage QRS Cannot rule out Anterior infarct , age undetermined versus lead placement Abnormal ECG When compared with ECG of 21-JUL-2017 18:10, No significant change was found Confirmed by KADEN TORRES ([id number]) on 09/26/2018 5:44:26 AM Referred By: Confirmed By:KADEN TORRES
== END 2018-09-26 01:57 | disposition home or self-care (01) ==
LOC: ER 23:55
DX: T50.991A Poisoning by other drugs, medicaments and biological substances, accidental (unintentional), initial encounter (principal)
CPT/HCPCS: 36415; 82040; 82247; 82310; 82374; 82435; 82565; 82947; 83735; 84075; 84132; 84155; 84295; 84450; 84460; 84520; 85025; 93005; 99283

== ENCOUNTER → 2018-12-06 | Outpatient (CLI) | payer MEDICARE, OTHER ==
[~2018-12-06] MED LIST changes: +BACL-1 PO; +MELA1TAB24 PO; +ONDA4TAB9 PO; +PIOG15TA67 PO; +SENN-187 PO; +TRAZ150T8 PO
== END ==
LOC: AMB 23:48
PROVIDERS: ATTEND Nurse Practitioner
DX: R53.1 Weakness (principal); R11.10 Vomiting, unspecified; R05 Cough; R53.83 Other fatigue
CPT/HCPCS: A0425; A0427

== ENCOUNTER 2018-12-07 00:13 | Emergency (ER) | payer MEDICARE, OTHER ==
[~2018-12-07 00:13] MED LIST changes: -BACL-1 PO; -MELA1TAB24 PO; -ONDA4TAB9 PO; -PIOG15TA67 PO; -SENN-187 PO
[2018-12-07] MEDS ORDERED: SENN-187 PO (00:29)
[2018-12-07] MEDS ORDERED: MELA1TAB24 PO (00:29)
[2018-12-07] MEDS ORDERED: NS(*) 0.9% 1000 ML BAG 1,000 ML IV ONE (00:29)
[2018-12-07] MEDS ORDERED: PIOG15TA67 PO (00:29)
[2018-12-07] MEDS ORDERED: BACL-1 PO (00:29)
--- NOTE | 2018-12-07 00:29 | ER Report ---
History and Physical Time Seen By MD: 00:20 Hx. of Stated Complaint: patient states started having nausea and vomiting that started tonight, increased weakness. HPI/ROS CHIEF COMPLAINT: weakness, nausea and vomiting. HISTORY OF PRESENT ILLNESS: This is a 68 year old female. She had nausea and vomiting starting tonight. 3 episodes. No blood. Not keeping fluids down. Feeling very weak and unable to get up from bed. No abdominal pain or flank pain. No shortness of breath, chest pain or cough. No fevers or chills. Allergies: Coded Allergies: amoxicillin (Verified Allergy, Mild, ITCHES, 01/31/18) codeine (Verified Allergy, Mild, HALLUCINATE, 01/31/18) Uncoded Allergies: tape (Allergy, Intermediate, rash, 04/12/09) Home Meds Active Scripts Ondansetron 4 Mg Odt (ONDANSETRON 4 MG ODT) 4 Mg Tab.rapdis, 4 MG PO Q6H PRN for NAUSEA/VOMITING, #20 TAB 0 Refills Prov:JOSUE ALBRECHT MD 12/07/18 Hydrocodone Bit/Acetaminophen (HYDROCODON-ACETAMINOPHEN 5-325) 1 Each Tablet, 1 EACH PO Q4H PRN for PAIN, #12 TAB 0 Refills Prov:JOSUE ALBRECHT MD 07/16/18 Reported Medications Sennosides/Docusate Sodium (STOOL SOFTENER TABLET) 1 Each Tablet, 1 EACH PO PRN 12/07/18 Melatonin/Pyridoxine Hcl (B6) (MELATONIN 1 MG TABLET) 1 Each Tablet, 1 EACH PO QHS 12/07/18 Pioglitazone Hcl (PIOGLITAZONE HCL) 15 Mg Tablet, 15 MG PO QDAY 12/07/18 Baclofen (BACLOFEN) 10 Mg Tablet, 10 MG PO BID, #30 TAB 12/07/18 Trazodone Hcl (TRAZODONE HCL) 150 Mg Tablet, 150 MG PO QHS 09/26/18 Buspirone Hcl (BUSPIRONE HCL) 15 Mg Tablet, 15 MG PO TID, #10 TAB 07/21/17 Pravastatin Sodium (Pravachol) 20 Mg Tablet, 40 MG PO QPM, 0 Refills 09/09/09 Citalopram Hydrobromide (Citalopram Hbr) 20 Mg Tablet, 40 MG PO QDAY 04/12/09 Hydrochlorothiazide (Hydrochlorothiazide) 25 Mg Tablet, 12.5 MG PO QAM 04/12/09 Discontinued Reported Medications Diclofenac Sodium (DICLOFENAC SODIUM) 75 Mg Tablet.dr, 75 MG PO TID PRN for ANXIETY, TAB 12/12/17 Dicyclomine Hcl (DICYCLOMINE HCL) 20 Mg Tablet, 20 MG PO QID 12/12/17 Melatonin/Pyridoxine Hcl (B6) (MELATONIN 10 MG TABLET) 1 Each Tab.mphase, 1 EACH PO QHS 12/12/17 Discontinued Scripts Tizanidine Hcl (TIZANIDINE HCL) 4 Mg Tablet, 4 MG PO TID PRN for MUSCLE SPASMS, #20 TAB 0 Refills Prov:JOSUE ALBRECHT MD 07/16/18 Reviewed Nurses Notes: Yes Hx Smoking: Yes (less than 1ppd/quitting) Smoking Status: Current: Every Day Smoker Exposure to Second Hand Smoke?: Yes Hx Substance Use Disorder: No Hx Alcohol Use: No Constitutional Vital Sign - Last 24 Hours 12/07/18 12/07/18 12/07/18 12/07/18 00:18 00:18 00:28 00:30 Temp 98.6 Pulse 115 110 Resp 24 B/P (MAP) 101/61 120/57 (78) Pulse Ox 93 91 O2 Delivery Nasal Cannula O2 Flow Rate 2.5 12/07/18 12/07/18 12/07/18 12/07/18 00:58 01:00 01:30 01:58 Pulse ??? 98 B/P (MAP) 123/69 (87) 136/73 (94) Pulse Ox 90 91 12/07/18 12/07/18 12/07/18 12/07/18 02:00 02:05 02:20 02:41 Pulse 94 93 B/P (MAP) 124/73 (90) 127/77 (94) Pulse Ox 91 90 12/07/18 12/07/18 12/07/18 12/07/18 02:50 03:00 03:05 03:20 Pulse 93 88 90 B/P (MAP) 118/68 (85) Pulse Ox 92 92 91 Intake and Output 12/06/18 12/06/18 12/07/18 15:00 23:00 07:00 Intake Total 2000 ml Balance 2000 ml Physical Exam General Appearance: The patient is alert. No acute distress. Eyes: Pupils are equal, round. No pallor, injection or icterus. ENT: Mucous membranes are dry. Otherwise normal oral mucosa. Posterior oropharynx is normal. Normal tympanic membranes and canals. Neck: Supple and non tender. No lymphadenopathy. Respiratory: Lungs are clear to auscultation. Cardiovascular: Regular rate and rhythm. No murmurs, gallops or rubs. Normal capillary refill. Gastrointestinal: Abdomen is soft and non tender. Nondistended. Normal active bowel sounds. No costovertebral angle tenderness with percussion. Neurological: Alert and oriented x3. Cranial nerves II through XII show no acute deficits on my exam. No focal neurologic deficits in the extremities. Generalized weakness. Able to sit up without problems. Skin: Warm and dry. No rashes. Musculoskeletal: Extremities are nontender. No tenderness in palpation of the ce rvical, thoracic and lumbar spine. DIFFERENTIAL DIAGNOSIS: After history and physical exam, differential diagnosis was considered for patient with nausea and vomiting, generalized weakness, look for intra-abdominal causes, viral syndrome, electrolyte abnormality, dehydration and urinary problem Medical Decision Making Data Points Result Diagram: 12/07/18 0039 12/07/18 0039 Laboratory Hematology Test 12/07/18 00:31 12/07/18 00:39 12/07/18 02:43 Influenza Virus Type A (PCR) Negative (NEGATIVE) Influenza Virus Type B (PCR) Negative (NEGATIVE) Red Blood Count 4.91 M/uL (4.17-5.56) Mean Corpuscular Volume 87.8 fL (80.0-96.0) Mean Corpuscular Hemoglobin 29.8 pg (26.0-33.0) Mean Corpuscular Hemoglobin Concent 34.0 g/dL (32.0-36.0) Red Cell Distribution Width 13.3 % (11.5-14.5) Mean Platelet Volume 9.0 fL (7.2-11.1) Neutrophils (%) (Auto) 78.3 % (39.4-72.5) Lymphocytes (%) (Auto) 14.3 % (17.6-49.6) Monocytes (%) (Auto) 6.0 % (4.1-12.4) Eosinophils (%) (Auto) 0.5 % (0.4-6.7) Basophils (%) (Auto) 0.9 % (0.3-1.4) Nucleated RBC Relative Count (auto) 0.0 /100WBC Neutrophils # (Auto) 5.2 K/uL (2.0-7.4) Lymphocytes # (Auto) 0.9 K/uL (1.3-3.6) Monocytes # (Auto) 0.4 K/uL (0.3-1.0) Eosinophils # (Auto) 0.0 K/uL (0.0-0.5) Basophils # (Auto) 0.1 K/uL (0.0-0.1) Nucleated RBC Absolute Count (auto) 0.00 K/uL Sodium Level 133 mmol/L (137-145) Potassium Level 3.4 mmol/L (3.5-5.0) Chloride Level 101 mmol/L (98-107) Carbon Dioxide Level 24 mmol/L (22-31) Blood Urea Nitrogen 16 mg/dl (7-18) Creatinine 1.50 mg/dl (0.52-1.04) Glomerular Filtration Rate Calc 34.4 Random Glucose 162 mg/dl (75-110) Calcium Level 9.4 mg/dl (8.4-10.2) Total Bilirubin 0.7 mg/dl (0.2-1.3) Aspartate Amino Transf (AST/SGOT) 25 U/L (0-35) Alanine Aminotransferase (ALT/SGPT) 22 U/L (0-56) Alkaline Phosphatase 67 U/L (0-126) Total Protein 7.3 g/dl (6.3-8.2) Albumin 4.4 g/dl (3.5-5.0) Amylase Level 105 U/L (0-110) Lipase 376 U/L (23-300) Urine Color Yellow Urine Clarity Slightly-cloudy Urine pH 5.0 pH (4.8-9.5) Urine Specific [place] 1.011 Urine Protein Negative mg/dL (NEGATIVE) Urine Glucose (UA) Negative mg/dL (NEGATIVE) Urine Ketones Trace mg/dL (NEGATIVE) Urine Blood Small (NEGATIVE) Urine Nitrite Negative (NEGATIVE) Urine Bilirubin Negative (NEGATIVE) Urine Urobilinogen Negative mg/dL (0.2-1.9) Urine Leukocyte Esterase Trace (NEGATIVE) Urine RBC 2 /HPF (0-2/HPF) Urine WBC 22 /HPF (0-5/HPF) Urine Squamous Epithelial Cells Many /LPF (</=FEW) Urine Transitional Epithelial Cells Many /LPF (NONE-FEW) Urine Bacteria Many /HPF (NONE-FEW) Urine Hyaline Casts Many /LPF (NONE-FEW) Urine Mucus Few /HPF (NONE-FEW) Chemistry Test 12/07/18 00:31 12/07/18 00:39 12/07/18 02:43 Influenza Virus Type A (PCR) Negative (NEGATIVE) Influenza Virus Type B (PCR) Negative (NEGATIVE) White Blood Count 6.6 k/uL (4.5-11.0) Red Blood Count 4.91 M/uL (4.17-5.56) Hemoglobin 14.6 g/dL (12.0-16.0) Hematocrit 43.1 % (34.0-47.0) Mean Corpuscular Volume 87.8 fL (80.0-96.0) Mean Corpuscular Hemoglobin 29.8 pg (26.0-33.0) Mean Corpuscular Hemoglobin Concent 34.0 g/dL (32.0-36.0) Red Cell Distribution Width 13.3 % (11.5-14.5) Platelet Count 118 K/uL (150-450) Mean Platelet Volume 9.0 fL (7.2-11.1) Neutrophils (%) (Auto) 78.3 % (39.4-72.5) Lymphocytes (%) (Auto) 14.3 % (17.6-49.6) Monocytes (%) (Auto) 6.0 % (4.1-12.4) Eosinophils (%) (Auto) 0.5 % (0.4-6.7) Basophils (%) (Auto) 0.9 % (0.3-1.4) Nucleated RBC Relative Count (auto) 0.0 /100WBC Neutrophils # (Auto) 5.2 K/uL (2.0-7.4) Lymphocytes # (Auto) 0.9 K/uL (1.3-3.6) Monocytes # (Auto) 0.4 K/uL (0.3-1.0) Eosinophils # (Auto) 0.0 K/uL (0.0-0.5) Basophils # (Auto) 0.1 K/uL (0.0-0.1) Nucleated RBC Absolute Count (auto) 0.00 K/uL Glomerular Filtration Rate Calc 34.4 Calcium Level 9.4 mg/dl (8.4-10.2) Total Bilirubin 0.7 mg/dl (0.2-1.3) Aspartate Amino Transf (AST/SGOT) 25 U/L (0-35) Alanine Aminotransferase (ALT/SGPT) 22 U/L (0-56) Alkaline Phosphatase 67 U/L (0-126) Total Protein 7.3 g/dl (6.3-8.2) Albumin 4.4 g/dl (3.5-5.0) Amylase Level 105 U/L (0-110) Lipase 376 U/L (23-300) Urine Color Yellow Urine Clarity Slightly-cloudy Urine pH 5.0 pH (4.8-9.5) Urine Specific [place] 1.011 Urine Protein Negative mg/dL (NEGATIVE) Urine Glucose (UA) Negative mg/dL (NEGATIVE) Urine Ketones Trace mg/dL (NEGATIVE) Urine Blood Small (NEGATIVE) Urine Nitrite Negative (NEGATIVE) Urine Bilirubin Negative (NEGATIVE) Urine Urobilinogen Negative mg/dL (0.2-1.9) Urine Leukocyte Esterase Trace (NEGATIVE) Urine RBC 2 /HPF (0-2/HPF) Urine WBC 22 /HPF (0-5/HPF) Urine Squamous Epithelial Cells Many /LPF (</=FEW) Urine Transitional Epithelial Cells Many /LPF (NONE-FEW) Urine Bacteria Many /HPF (NONE-FEW) Urine Hyaline Casts Many /LPF (NONE-FEW) Urine Mucus Few /HPF (NONE-FEW) Urinalysis Test 12/07/18 02:43 Urine Color Yellow Urine Clarity Slightly-cloudy Urine pH 5.0 pH (4.8-9.5) Urine Specific [place] 1.011 Urine Protein Negative mg/dL (NEGATIVE) Urine Glucose (UA) Negative mg/dL (NEGATIVE) Urine Ketones Trace mg/dL (NEGATIVE) Urine Blood Small (NEGATIVE) Urine Nitrite Negative (NEGATIVE) Urine Bilirubin Negative (NEGATIVE) Urine Urobilinogen Negative mg/dL (0.2-1.9) Urine Leukocyte Esterase Trace (NEGATIVE) Urine RBC 2 /HPF (0-2/HPF) Urine WBC 22 /HPF (0-5/HPF) Urine Squamous Epithelial Cells Many /LPF (</=FEW) Urine Transitional Epithelial Cells Many /LPF (NONE-FEW) Urine Bacteria Many /HPF (NONE-FEW) Urine Hyaline Casts Many /LPF (NONE-FEW) Urine Mucus Few /HPF (NONE-FEW) EKG/Imaging Imaging INDICATION: Abdominal pain EXAM DATE: 12/07/2018 12:55 AM COMPARISON: Chest radiographs 01/31/2018, CT abdomen and pelvis 07/01/2014. FINDINGS: AP view chest with single AP upright view of the abdomen. The lungs are well-expanded and clear. No pleural effusion or pneumothorax. Heart size is normal. Bowel gas pattern is nonobstructive. No pneumatosis, pneumoperitoneum or portal venous gas. No evidence of large volume ascites or mass. No acute osseous abnormality. IMPRESSION: No apparent acute abnormality. Report Dictated By: Saturnino Hubbard MD at 12/07/2018 1:33 AM ED Course/Re-evaluation Clinical Indication for ER IV: Hydration, IV Access ED Course Vitals stable. IV fluids and Zofran given. Imaging unremarkable. Mild changes in electrolyts. Chronic kidney disease with creatinine at or near baseline. Fluids given and patient was able to provide urine sample, contaminated and culture ordered. She felt better and gave instructions for Zofran use and fluids at home. Decision to Disposition Date: Dec 07, 2018 Decision to Disposition Time: 03:26 Depart Departure Latest Vital Signs Vital Signs Date Time Temp Pulse Resp B/P (MAP) Pulse Ox O2 Delivery O2 Flow Rate FiO2 12/07/18 03:20 90 91 12/07/18 03:00 118/68 (85) 12/07/18 00:18 98.6 24 Nasal Cannula 12/07/18 00:18 2.5 Impression: Primary Impression: Viral syndrome Additional Impression: Nausea & vomiting Condition: Improved Disposition: HOME OR SELF-CARE Referrals: ROMY HESS PA-C (PCP) New Scripts Ondansetron 4 Mg Odt (ONDANSETRON 4 MG ODT) 4 Mg Tab.rapdis 4 MG PO Q6H PRN for NAUSEA/VOMITING, #20 TAB 0 Refills Prov: JOSUE ALBRECHT MD 12/07/18 Patient Instructions: Acute Nausea and Vomiting (ED) Additional Instructions: Rest and increase fluid intake over the next few days. Take Zofran 4mg, one every 6 hours as needed for nausea or vomiting. Problem Qualifiers JOSUE ALBRECHT MD Dec 07, 2018 00:29
[2018-12-07] MEDS ORDERED: ONDANSETRON 4 MG/2 ML VIAL IVP ONE (00:30)
[2018-12-07] MEDS ORDERED: EMS NS 0.9%(*) 1000 ML BAG 1,000 ML IV ONE (00:40)
[2018-12-07 00:49] LABS: PLATELET COUNT, AUTOMATED 118 K/uL (150-450)
--- NOTE | 2018-12-07 01:40 | RADIOLOGY IMAGING REPORT ---
FACILITY: [facility] PATIENT NAME: Darvin Jimenez : 1950 MR: [id number] V: [id number] EXAM DATE: ORDERING PHYSICIAN: JOSUE ALBRECHT TECHNOLOGIST: Location: [facility] Patient: Darvin Jimenez : 1950 Visit/Account:[id number] Date of Sevice: 12/07/2018 INDICATION: Abdominal pain EXAM DATE: 12/07/2018 12:55 AM COMPARISON: Chest radiographs 01/31/2018, CT abdomen and pelvis 07/01/2014. FINDINGS: AP view chest with single AP upright view of the abdomen. The lungs are well-expanded and clear. No pleural effusion or pneumothorax. Heart size is normal. Bowel gas pattern is nonobstructive. No pneumatosis, pneumoperitoneum or portal venous gas. No eviden ce of large volume ascites or mass. No acute osseous abnormality. IMPRESSION: No apparent acute abnormality. Report Dictated By: Saturnino Hubbard MD at 12/07/2018 1:33 AM Report E-Signed By: Saturnino Hubbard MD at 12/07/2018 1:35 AM WSN:[id number]
--- NOTE | 2018-12-07 01:41 | RADIOLOGY IMAGING REPORT ---
FACILITY: [facility] PATIENT NAME: Darvin Jimenez : 1950 MR: [id number] V: [id number] EXAM DATE: ORDERING PHYSICIAN: JOSUE ALBRECHT TECHNOLOGIST: Location: [facility] Patient: Darvin Jimenez : 1950 Visit/Account:[id number] Date of Sevice: 12/07/2018 INDICATION: Abdominal pain EXAM DATE: 12/07/2018 12:55 AM COMPARISON: Chest radiographs 01/31/2018, CT abdomen and pelvis 07/01/2014. FINDINGS: AP view chest with single AP upright view of the abdomen. The lungs are well-expanded and clear. No pleural effusion or pneumothorax. Heart size is normal. Bowel gas pattern is nonobstructive. No pneumatosis, pneumoperitoneum or portal venous gas. No eviden ce of large volume ascites or mass. No acute osseous abnormality. IMPRESSION: No apparent acute abnormality. Report Dictated By: Saturnino Hubbard MD at 12/07/2018 1:33 AM Report E-Signed By: Saturnino Hubbard MD at 12/07/2018 1:35 AM WSN:[id number]
[2018-12-07 03:00] VITALS: BP 118/68
[2018-12-07] MEDS ORDERED: ACETAMINOPHEN 500 MG TAB PO ONE (03:00)
[2018-12-07] MEDS ORDERED: ONDA4TAB9 PO (03:27)
[2018-12-07] MEDS ORDERED: ONDANSETRON 4 MG ODT TH SL ONE (03:30)
== END 2018-12-07 03:37 | disposition home or self-care (01) ==
LOC: ER 00:19
DX: B34.9 Viral infection, unspecified (principal); R11.2 Nausea with vomiting, unspecified
CPT/HCPCS: 36415; 71045; 74019; 81001; 82150; 83690; 85025; 87077; 87088; 87186; 87502; 96361; 96374; 99284; A9270; J2405; J7030; Q0162; 82040; 82247; 82310; 82374; 82435; 82565; 82947; 84075; 84132; 84155; 84295; 84450; 84460; 84520; S0119

== ENCOUNTER 2019-03-16 18:41 | Emergency (ER) | payer MEDICARE, OTHER ==
[~2019-03-16 18:41] MED LIST changes: +BACL-1 PO; +MELA1TAB24 PO; +ONDA4TAB9 PO; +PIOG15TA67 PO; +SENN-187 PO; -TRAZ50TA34 PO; +TRAZ50TA52 PO
--- NOTE | 2019-03-16 18:57 | ER Report ---
History and Physical Time Seen By MD: 18:54 Hx. of Stated Complaint: Pt. fell yesterday morning around 7:00am. Now she has right wrist and arm pain. Wrist is swollen and tender. HPI/ROS CHIEF COMPLAINT: Fall, right wrist and right shoulder pain HISTORY OF PRESENT ILLNESS: 68-year-old female smoker presents ambulatory to the ER after a ground-level fall yesterday at 7 AM she landed on outstretched right wrist. She has significant swelling and discomfort. She is unable to move it without significant pain. She has pain in her right shoulder. There is no gross deformity of the shoulder. The range of motion is significantly decreased. She rates the pain as 4/10. Patient denies head impact, neck pain, chest pain, shortness of breath. Allergies: Coded Allergies: amoxicillin (Verified Allergy, Mild, ITCHES, 03/16/19) codeine (Verified Allergy, Mild, HALLUCINATE, 03/16/19) Uncoded Allergies: tape (Allergy, Intermediate, rash, 04/12/09) Home Meds Active Scripts Ondansetron 4 Mg Odt (ONDANSETRON 4 MG ODT) 4 Mg Tab.rapdis, 4 MG PO Q6H PRN for NAUSEA/VOMITING, #20 TAB 0 Refills Prov:JOSUE ALBRECHT MD 12/07/18 Hydrocodone Bit/Acetaminophen (HYDROCODON-ACETAMINOPHEN 5-325) 1 Each Tablet, 1 EACH PO Q4H PRN for PAIN, #12 TAB 0 Refills Prov:JOSUE ALBRECHT MD 07/16/18 Reported Medications Sennosides/Docusate Sodium (STOOL SOFTENER TABLET) 1 Each Tablet, 1 EACH PO PRN 12/07/18 Melatonin/Pyridoxine Hcl (B6) (MELATONIN 1 MG TABLET) 1 Each Tablet, 1 EACH PO QHS 12/07/18 Pioglitazone Hcl (PIOGLITAZONE HCL) 15 Mg Tablet, 15 MG PO QDAY 12/07/18 Baclofen (BACLOFEN) 10 Mg Tablet, 10 MG PO BID, #30 TAB 12/07/18 Trazodone Hcl (TRAZODONE HCL) 150 Mg Tablet, 150 MG PO QHS 09/26/18 Buspirone Hcl (BUSPIRONE HCL) 15 Mg Tablet, 15 MG PO TID, #10 TAB 07/21/17 Pravastatin Sodium (Pravachol) 20 Mg Tablet, 40 MG PO QPM, 0 Refills 09/09/09 Citalopram Hydrobromide (Citalopram Hbr) 20 Mg Tablet, 40 MG PO QDAY 04/12/09 Hydrochlorothiazide (Hydrochlorothiazide) 25 Mg Tablet, 12.5 MG PO QAM 04/12/09 Hx Smoking: Yes (less than 1ppd/quitting) Smoking Status: Current: Every Day Smoker Exposure to Second Hand Smoke?: Yes Hx Substance Use Disorder: No Hx Alcohol Use: No Constitutional Vital Sign - Last 24 Hours 03/16/19 03/16/19 03/16/19 03/16/19 18:44 18:44 19:00 19:11 Temp 97.5 Pulse 98 89 Resp 20 B/P (MAP) 144/88 144/88 (106) 109/63 (78) Pulse Ox 82 94 O2 Delivery Room Air 03/16/19 19:30 B/P (MAP) 123/76 (92) Physical Exam Vital signs stable, afebrile, pulse ox normal General Appearance: The patient is alert, has no immediate need for airway protection and no current signs of toxicity. No acute distress, palpation of the head and neck reveal no tenderness or trauma. HEENT: Pupils equal and round no injection. TMs normal, oropharynx without redness or exudate, paced that Respiratory: Chest is non tender, lungs are clear to auscultation., No wheezing or rails Cardiac: regular rate and rhythm, no murmur Gastrointestinal: Abdomen is soft and non tender, no masses, bowel sounds normal. Musculoskeletal: Neck: Neck is supple and non tender. Extremities have full range of motion and are non tender. Examination of the right wrist reveals gross soft tissue swelling and tenderness around the radius. There is decreased range of motion, all digits are neurovascularly intact, the right shoulder has moderate tenderness and effusion. There is no obvious def ormity. There is significantly decreased range of motion to about half of normal Skin: No rashes or lesions. DIFFERENTIAL DIAGNOSIS: After history and physical exam differential diagnosis was considered for sprain, strain, fracture, dislocation, contusion Medical Decision Making EKG/Imaging Imaging X-ray: Right wrist, 3 views was obtained. I viewed the images myself on the PACS system. My interpretation of the images is: No fracture no dislocation or malalignment. The radiologist interpretation had no clinically significant variation from this interpretation. X-ray: Right shoulder, 2 views was obtained. I viewed the images myself on the PACS system. My interpretation of the images is: No fracture no dislocation or malalignment. The radiologist interpretation had no clinically significant variation from this interpretation. ED Course/Re-evaluation ED Course Patient was minute to an examination room. H&P was done. The dental diagnoses was considered. Patient with a grossly swollen right wrist after a ground-level fall. Patient's pain appears to be controlled. She is not in severe discomfort. She has pain with movement and palpation of the wrist. All digits are neurovascularly intact. Patient also has some right shoulder pain. Diagnostic x-rays were performed of both areas which were unremarkable. The patient was informed of the results. She is advised to conservative treatment plan. She is unable take NSAIDs according to her primary care doctor. She is advised Tylenol and ice to the affected area. She's placed in a universal wrist splint and a sling to rest the shoulder. Follow-up with primary care in 5-7 days if unimproved for referral to physical therapy. Decision to Disposition Date: Mar 16, 2019 Decision to Disposition Time: 19:04 Depart Departure Latest Vital Signs Vital Signs Date Time Temp Pulse Resp B/P (MAP) Pulse Ox O2 Delivery O2 Flow Rate FiO2 03/16/19 19:30 123/76 (92) 03/16/19 19:11 89 94 03/16/19 18:44 97.5 20 Room Air Impression: Primary Impression: Right wrist sprain Additional Impression: Right shoulder pain Condition: Improved Disposition: HOME OR SELF-CARE Referrals: ROMY JOHNSON PA-C (PCP) Patient Instructions: Shoulder Pain (ED), Wrist Sprain (ED) Additional Instructions: Take Tylenol for pain Apply ice packs to your wrist and shoulder for 2-3 days then switch to heat Follow-up with your primary care provider Lor Johnson for referral to physical therapy if unimproved in 5-7 days Problem Qualifiers Primary Impression: Right wrist sprain Encounter type: initial encounter Qualified Codes: S63.501A - Unspecified sprain of right wrist, initial encounter Additional Impression: Right shoulder pain Chronicity: acute Qualified Codes: M25.511 - Pain in right shoulder GLORY CASTILLO DO Mar 16, 2019 18:57
[2019-03-16 19:30] VITALS: BP 123/76
--- NOTE | 2019-03-16 19:49 | RADIOLOGY IMAGING REPORT ---
FACILITY: [facility] [place] PATIENT NAME: Darvin Jimenez : 1950 MR: [id number] V: [id number] EXAM DATE: ORDERING PHYSICIAN: GLORY CASTILLO TECHNOLOGIST: Location: [facility] [place] Patient: Darvin Jimenez : 1950 Visit/Account:[id number] Date of Sevice: 03/16/2019 EXAMINATION: Right shoulder 4 views. HISTORY: Fall. Pain. COMPARISON: None FINDINGS: No evidence of acute fracture or dislocation about the right shoulder. Normal alignment at the glenoh umeral and acromioclavicular joints. The subacromial space is preserved. Visualized upper right ribs appear intact. IMPRESSION: Negative right shoulder. Report Dictated By: Shawn Lock MD at 03/16/2019 7:45 PM Report E-Signed By: Shawn Lock MD at 03/16/2019 7:45 PM WSN:[id number]
--- NOTE | 2019-03-16 19:50 | RADIOLOGY IMAGING REPORT ---
FACILITY: [facility] PATIENT NAME: Darvin Jimenez : 1950 MR: [id number] V: [id number] EXAM DATE: ORDERING PHYSICIAN: GLORY CASTILLO TECHNOLOGIST: Location: [facility] Patient: Darvin Jimenez : 1950 Visit/Account:[id number] Date of Sevice: 03/16/2019 Technique: XR WRIST 3 OR MORE VIEWS RT HISTORY: fell pain Comparison studies: None FINDINGS: There is no acute fracture. The alignment of the right wrist is preserved. Small ossific de nsity is seen posterior to the carpal row likely degenerative or the sequela of previous avulsion inj ury. Soft tissue swelling surrounds the right wrist. IMPRESSION: 1. No acute osseous process. Report Dictated By: Ben Nicholson DO at 03/16/2019 7:45 PM Report E-Signed By: eBn Nicholson DO at 03/16/2019 7:47 PM WSN:[id number]
== END 2019-03-16 19:50 | disposition home or self-care (01) ==
LOC: ER 19:01
DX: S63.501A Unspecified sprain of right wrist, initial encounter (principal); M25.511 Pain in right shoulder; W18.30XA Fall on same level, unspecified, initial encounter
CPT/HCPCS: 73030; 73110; 99284; A4565; L3908

== ENCOUNTER 2019-05-23 15:01 | Emergency (ER) | payer MEDICARE, OTHER ==
--- NOTE | 2019-05-23 15:07 | ER Report ---
History and Physical Time Seen By MD: 15:03 HPI/ROS 68-year-old female with history of COPD on chronic home oxygen, arthritis and previous left knee arthroscopically presents with several day history of left knee pain. No recent trauma or falls. Patient has been having some pain worse with movement of the left anterior knee with some radiation down to her feet. She denies any pain in her thigh, buttocks, or back. Denies any distal numbness, tingling, weakness. Patient is not anticoagulated and has no personal history of any blood clots. Denies any asymmetric swelling. No recent fevers or chills. A full review of systems was completed and is otherwise negative except as noted in history of present illness Allergies: Coded Allergies: amoxicillin (Verified Allergy, Mild, ITCHES, 05/23/19) codeine (Verified Allergy, Mild, HALLUCINATE, 05/23/19) Uncoded Allergies: tape (Allergy, Intermediate, rash, 04/12/09) Home Meds Active Scripts Diclofenac Sodium 3% Gel (Diclofenac Sodium 3% Gel) 100 Gm Gel..gram., 1 LESLEY TOP BID for PAIN for 14 Days, #1 TUBE 0 Refills Left knee Prov:JULISA AGUIRRE MD 05/23/19 Reported Medications Acetaminophen (Tylenol) 325 Mg Capsule, 325 MG PO PRN 05/23/19 Multivitamin (MULTIVITAMINS) 1 Each Capsule, 1 EACH PO QDAY, CAPSULE 05/23/19 Sennosides/Docusate Sodium (STOOL SOFTENER TABLET) 1 Each Tablet, 1 EACH PO PRN 12/07/18 Melatonin/Pyridoxine Hcl (B6) (MELATONIN 1 MG TABLET) 1 Each Tablet, 1 EACH PO QHS 12/07/18 Pioglitazone Hcl (PIOGLITAZONE HCL) 15 Mg Tablet, 15 MG PO QDAY 12/07/18 Baclofen (BACLOFEN) 10 Mg Tablet, 10 MG PO BID, #30 TAB 12/07/18 Trazodone Hcl (TRAZODONE HCL) 150 Mg Tablet, 150 MG PO QHS 09/26/18 Buspirone Hcl (BUSPIRONE HCL) 15 Mg Tablet, 15 MG PO TID, #10 TAB 07/21/17 Pravastatin Sodium (Pravachol) 20 Mg Tablet, 40 MG PO QPM, 0 Refills 09/09/09 Citalopram Hydrobromide (Citalopram Hbr) 20 Mg Tablet, 40 MG PO QDAY 04/12/09 Hydrochlorothiazide (Hydrochlorothiazide) 25 Mg Tablet, 12.5 MG PO QAM 04/12/09 Discontinued Scripts Ondansetron 4 Mg Odt (ONDANSETRON 4 MG ODT) 4 Mg Tab.rapdis, 4 MG PO Q6H PRN for NAUSEA/VOMITING, #20 TAB 0 Refills Prov:JOSUE ALBRECHT MD 12/07/18 Hydrocodone Bit/Acetaminophen (HYDROCODON-ACETAMINOPHEN 5-325) 1 Each Tablet, 1 EACH PO Q4H PRN for PAIN, #12 TAB 0 Refills Prov:JOSUE ALBRECHT MD 07/16/18 Reviewed Nurses Notes: Yes Old Medical Records Reviewed: Yes Hx Smoking: Yes (less than 1ppd/quitting) Smoking Status: Current: Every Day Smoker Exposure to Second Hand Smoke?: Yes Hx Substance Use Disorder: No Hx Alcohol Use: No Constitutional Vital Sign - Last 24 Hours 05/23/19 05/23/19 05/23/19 05/23/19 15:03 15:11 15:30 15:31 Temp 98.0 Pulse 74 74 Resp 12 B/P (MAP) 150/81 (104) 150/81 122/64 (83) Pulse Ox 88 94 O2 Delivery Room Air Physical Exam General Appearance: Patient is alert and interactive on home oxygen Eyes: Equal and reactive Respiratory: Chest is non tender, lungs are clear to auscultation. Cardiac: regular rate and rhythm [ ] Gastrointestinal: Abdomen is soft and non tender, no masses, bowel sounds normal. Musculoskeletal: Left lower extremity: No significant asymmetric swelling. 2+ distal dorsalis pedis pulse. Patient is able to flex and extend knee with mild increase in pain. No palpable knee effusion. No overlying erythema. Skin: No rashes or lesions. Medical Decision Making EKG/Imaging Imaging X-ray of the left knee: No acute osseous findings at the left knee; chronic degenerative changes with mild medial compartment narrowing ED Course/Re-evaluation ED Course 68-year-old female who presents with several day history of left knee pain in the setting of previous knee arthroscopy. No traumatic mechanism. No signs or symptoms or physical exam findings concerning for septic arthritis. Low clinical suspicion for DVT given lack of asymmetric swelling and pain. Be all anterior in the left knee. I did perform a bedside ultrasound and she had complete compression of her popliteal as well as her femoral vein on the left including at the saphenous takeoff and therefore do not feel that further workup for DVT is indicated at this time. Obtained a three-view knee x-ray which did not demonstrate any acute fracture but did note some chronic degenerative changes with mild medial compartmental narrowing which is consistent with the patient is most tender. Discussed using topical diclofenac given the patient's renal function we will avoid systemic NSAIDs. Discussed following up with orthopedics and her primary care physician. Discussed that if her symptoms change or worsen including new swelling, redness, fever, worsening pain to return to the emergency department for reevaluation. Patient and daughter were in agreement with using an assistive walking device at home. Decision to Disposition Date: May 23, 2019 Decision to Disposition Time: 15:55 Depart Departure Latest Vital Signs Vital Signs Date Time Temp Pulse Resp B/P (MAP) Pulse Ox O2 Delivery O2 Flow Rate FiO2 05/23/19 15:31 74 94 05/23/19 15:30 122/64 (83) 05/23/19 15:11 98.0 12 Room Air Impression: Primary Impression: Osteoarthritis of left knee Condition: Improved Disposition: HOME OR SELF-CARE Referrals: ROMY HESS PA-C (PCP) JESSICA ALTMAN MD New Scripts Diclofenac Sodium 3% Gel (Diclofenac Sodium 3% Gel) 100 Gm Gel..gram. 1 LESLEY TOP BID for PAIN for 14 Days, #1 TUBE 0 Refills Left knee Prov: JULISA AGUIRRE MD 05/23/19 Patient Instructions: Knee Pain (ED) JULISA AGUIRRE MD May 23, 2019 15:07
[2019-05-23] MEDS ORDERED: ACET325C5 PO (15:19)
[2019-05-23] MEDS ORDERED: MULT1CAP59 PO (15:19)
[2019-05-23 15:30] VITALS: BP 122/64
--- NOTE | 2019-05-23 15:52 | RADIOLOGY IMAGING REPORT ---
FACILITY: [facility] PATIENT NAME: Darvin Jimenez : 1950 MR: [id number] V: [id number] EXAM DATE: ORDERING PHYSICIAN: JULISA AGUIRRE TECHNOLOGIST: Location: [facility] Patient: Darvin Jimenez : 1950 Visit/Account:[id number] Date of Sevice: 05/23/2019 EXAMINATION: Left knee 3 views HISTORY: Atraumatic left knee pain COMPARISON: 01/14/2013. FINDINGS: Bones of the left knee demonstrate normal alignment. No evidence of fracture or dislocation. There is mild joint space narrowing in the medial compartment with marginal osteophyte formation. Th e lateral joint space is preserved. Mild degenerative changes at the patellofemoral joint. Soft tissues are radiographically unremarkable. No significant knee joint effusion along the suprapa tellar bursa. IMPRESSION: 1. No acute osseous findings at the left knee. 2. Chronic degenerative changes with mild medial compartment narrowing. Report Dictated By: Shawn Lock MD at 05/23/2019 3:42 PM Report E-Signed By: Shawn Lock MD at 05/23/2019 3:45 PM WSN:[id number]
[2019-05-23] MEDS ORDERED: DICL100G3 TOP (15:58)
== END 2019-05-23 16:10 | disposition home or self-care (01) ==
LOC: ER 15:32
DX: M17.12 Unilateral primary osteoarthritis, left knee (principal)
CPT/HCPCS: 99283